=== PATIENT | female | born 1990 | race Two or more races ===

== ENCOUNTER → 2022-09-06 14:11 | Outpatient (BNVA) | payer MEDICAID, SELFPAY | PROVIDERS: PCP Student in an Organized Health Care Education/Training Program; Visit Provider Obstetrics & Gynecology | DX: Z34.01 Encounter for supervision of normal first pregnancy, first trimester (principal); Z3A.01 Less than 8 weeks gestation of pregnancy | CPT/HCPCS: 81025; 99202 ==

== ENCOUNTER 2022-09-07 12:47 | Outpatient (REF) | payer MEDICAID, SELFPAY ==
--- NOTE | ~2022-09-07 | US_ITS ---
EXAMINATION: US OBSTETRICAL ULTRASOUND CLINICAL INFORMATION: Supervision of normal . COMPARISON: None available. LMP: 07/15/2022. Gestational age by maternal dates is 7 weeks and 5 days. Estimated date of delivery by maternal dates is 04/21/2023. TECHNIQUE: Ultrasound of the maternal pelvis is performed using transabdominal transducer. M-mode Doppler is also performed. FINDINGS: There is a single intrauterine gestational sac with visible yolk sac, embryo/fetus, and cardiac activity. There is no significant subchorionic hemorrhage or hematoma. HR: 163 beats per minute. CRL (crown rump length): 1.86 cm (8 weeks and 3 days +/- 4 days). MIKY (estimated date of delivery): 04/16/2023 +/- 4 days. MATERNAL ADNEXA: The right maternal ovary measures 3.2 x 2.0 x 3.0 cm. The right ovary contains a 1.9 x 1.6 x 1.8 cm benign corpus luteum cyst, for which no imaging follow-up is recommended. The left maternal ovary measures 2.4 x 1.9 x 2.1 cm. There is no significant maternal adnexal mass. No maternal pelvic ascites. US/US OB <= 14 weeks fetus IMPRESSION: 1. Single intrauterine gestation with ultrasound gestational age of 8 weeks and 3 days +/- 4 days. 2. Estimated date of delivery is 04/16/2023 +/- 4 days. 3. No maternal adnexal mass or pelvic ascites.
== END 2022-09-07 12:48 | disposition home or self-care (01) ==
LOC: HO.US 12:47
PROVIDERS: PCP Student in an Organized Health Care Education/Training Program; Visit Provider Obstetrics & Gynecology
DX: Z34.91 Encounter for supervision of normal pregnancy, unspecified, first trimester (principal)
CPT/HCPCS: 76801

== ENCOUNTER 2022-09-14 13:19 | Outpatient (REF) | payer MEDICAID, SELFPAY ==
[2022-09-14 14:27] LABS: Hematocrit 37.3 % (37.0-47.0); Hemoglobin 12.5 g/dl (12.0-16.0); Mean Corpuscular HGB Conc 33.5 g/dl (31.0-35.0); Mean Corpuscular Volume 83.4 fL (80.0-98.0); Mean Platelet Volume 8.8 fL (9.4-12.3); Platelet Count 390 X10*3/uL (160-400); Red Blood Count 4.47 X10*6/uL (4.20-5.50); Red Cell Distribution Width 13.5 % (11.0-16.0); White Blood Count 10.4 X10*3/uL (4.8-10.8)
[2022-09-14 16:15] LABS: Amphetamine Screen Urine Not Detected (Not Detect); Barbiturates, Urine Not Detected (Not Detect); Benzodiazepines Screen Urine Not Detected (Not Detect); Cannabinoid Screen Urine Not Detected (Not Detect); Cocaine Screen Urine Not Detected (Not Detect); Fentanyl, urine Not Detected (Not Detect); Opiate Screen Urine Not Detected (Not Detect); Phencyclidine Screen Urine Not Detected (Not Detect)
[2022-09-14 16:54] LABS: Glucose 1 Hour PP 50gm Dose 120 mg/dL (60-140)
[2022-09-15 08:53] LABS: HBsAGNum1 0.31 S/CO (0.00-0.99); HIV AB/AG Nonreactive (Nonreactive); HIV Num 1 0.05 S/CO (0.00-0.99); Hepatitis B Surface Antigen Negative (Negative); ~HepC Num1 0.07 S/CO (0.00-0.79); ~Hepatitis C Antibody Nonreactive (Nonreactive)
[2022-09-15 09:10] LABS: Syphilis Screen Nonreactive (Nonreactive)
[2022-09-16 01:52] LABS: Rubella IgG Antibody 2.61 Index
[2022-09-29 13:47] LABS: CF Ethnicity WB; Cystic Fibrosis NEGATIVE (NEGATIVE)
== END 2022-09-14 13:20 | disposition home or self-care (01) ==
LOC: HO.LAB 13:19
PROVIDERS: PCP Student in an Organized Health Care Education/Training Program; Visit Provider Obstetrics & Gynecology
DX: Z34.90 Encounter for supervision of normal pregnancy, unspecified, unspecified trimester (principal)
CPT/HCPCS: 80307; 81220; 82950; 85027; 86762; 86780; 86787; 86803; 86850; 86900; 87086; 87340; 87389; 99212

== ENCOUNTER → 2022-09-25 09:59 | Outpatient (BNVA) | payer OTHER, SELFPAY | PROVIDERS: PCP Student in an Organized Health Care Education/Training Program; Visit Provider Obstetrics & Gynecology ==

== ENCOUNTER 2022-10-11 09:12 | Outpatient (AMB) | payer OTHER, SELFPAY ==
--- NOTE | 2022-10-11 09:23 | A.OFFVISPN_ITS ---
Intake Vital Signs 10/11/22 09:24 Height 4 ft 11 in Weight 136 lb BMI 27.5 BP 114/60 Intake Visit Reasons: OB PE Intake Note: EPDS 1 The patient agreed to use of a medical assisting instructor during this encounter. Scribed for ROSALIO Canela by Lakshmi Flores medical assisting instructor, on 10/11/2022 at 9:55 am EST. Lead Janitor Required: Yes Lead Janitor Language: Project Manager Retail Name: Ksenia Information Interpreted: non-clinical & clinical Ribbon Hand: Ribbon Hand Present (Ksenia) Allergies dipyrone Allergy (Intermediate, Verified 10/11/22 09:23) Rash Patient : Yes PFSH Medical History (Updated 10/11/22 @ 11:03 by Flor Blair CNM) History of PCOS Migraines Nausea and vomiting during Supervision of normal first in first trimester Supervision of normal in second trimester Family History Mother HTN (hypertension) Brother HTN (hypertension) Father COVID-19 Social History (Updated 09/25/22 @ 10:43 by Poonam Will) Household Members: Significant Other and Family Household Members Other:: Aunt,cousin Housing: Apartment Are you a primary manager managed care to a significant other at home: No Do you presently have visiting nurse or other home services: No Alcohol intake: never Patient Tobacco Use Status: Never used Tobacco Agree to transfusion: Yes Current occupational status: employed Current occupation: Food truck Current occupational exposures/hazards: No Sexual orientation: Straight/Heterosexual Gender identity: Female Female Reproductive History Menstrual Age of Menarche: 14 Total pregnancies: 2 Ab spontaneous: 1 History History 2 Elective abortions 0 Para 0 Spontaneous abortions 1 Hx # Term Pregnancies 0 Ectopic pregnancies 0 Hx # Pregnancies 0 Multiple births 0 Past Pregnancies Del. Date GA/Weeks Outcome Route Wt Inf Gender Labor Flavia Anesthesia Location Provider Complicate Unknown spontaneous Questionnaire History History : 2 Dougherty Depression Dougherty Depression Scale I have been able to laugh and see the funny side of things: As much as I always could I have looked forward with enjoyment to things: As much as I ever did I have blamed myself unnecessarily when things went wrong: Not very often I have been anxious or worried for no reason: No, not at all I have felt scared of panicky for no very good reason at all: No, not at all Things have been getting on top of me: No, I have been coping as well as ever I have been so unhappy that I have had difficulty sleeping: No, not at all I have felt sad or miserable: No, not at all I have been so unhappy that I have been crying: No, never The thought of harming myself has occurred to me: Never 1 Visit MIKY Calculator Estimated Delivery Date Method Current WG Current Estimate 04/21/23 LMP (Certain) 12w 4d Other Estimates 04/16/23 Ultrasound #1 13w 2d Expected Delivery Route/Plan Specific Issues/Plans EDC: 04/16/23 A positive Problem List: Yi speaking Migraines NT: not done when she arrived as they reported no order was available. Our staff called and was reported by [facility] staff that she was late 1/2hr. for her appt. Panorama: ordered 10/11 FAS: ordered 10/11 WIC: has appt. 10/11 CBE: Vaccination status: COVID: Tdap: Flu: Social hx: lives w/, and aunt Labor support: Ryan plan: control: Note author: Flor Blair CNM/Lakshmi Flores medical assisting instructor 12.4 wk RAHUL. Feeling well. Taking PNV. Hydrating well and good appetite Good FM, no LOF, VB or abd pain. Complaints of nausea and migraine but when she eats nausea goes away. Reports she went to [facility] Sunday for Nuchal Scan and they didn't have a order, they sent her away and it was a mistake on their end. She has WIC appointment today. Last pap smear; normal per pt. Denies vaginal itching and irritation. Offered Panorama blood test; she accepts. Discussed: VB and abd pain . Lab work; normal. Panorama blood test ordered. Office will call with results. Schedule 18-20 weeks US. Rx B6 vitamins for nausea. GC/CT panel done today. Await results and treat accordingly. No intimacy for now until healed from pap smear. Advised to eat small frequent meals and stay cool and hydrated. PEC - headaches: not resolved with 2 regular strength Tylenol doses, visual disturbances warnings and when to call for further evaluation. Reviewed when to call for any VB. Discussed to call the service here for any emergencies/deliveries to be directed to [facility]. OB Visit Log Initial Weight: 134 lb Date -?-?-?-?-?-?-?-?-?-?-?-?- EGA Weight Gest Week Fundal Ht Present FHR move Efface % Edema BP PrePreg We Weight GTT -?-?-?-?-?-?-?-?-?-?-?-?- Glucose LV Protein Blood Type 09/25/22 -?-?-?-?-?-?-?-?-?-?-?-?- 10w 2d 135 lb (+16 oz) 135 l b -?-?-?-?-?-?-?-?-?-?-?-?- 10/11/22 -?-?-?-?-?-?-?-?-?-?-?-?- 12w 4d 136 lb (+2 lb) 14 150 114/60 136 lb -?-?-?-?-?-?-?-?-?-?-?-?- Notes Visit Date: 10/11/22 Last Updated by: Flor Blair CNM Note author: Flor Blair CNM/Lakshmi Flores medical assisting instructor 12.4 wk RAHUL. Feeling well. Taking PNV. Hydrating well and good appetite Good FM, no LOF, VB or abd pain. EPDS=1. Labs reviewed. Complaints of nausea and migraine but when she eats nausea goes away. Reports she went to [facility] Sunday for Nuchal Scan and they didn't have a order, they sent her away and it was a mistake on their end. She has [facility] appointment today. Last pap smear; normal per pt. Denies vaginal itching and irritation. Offered Panorama blood test; she accepts. Discussed: VB and abd pain . Lab work; normal. Panorama blood test ordered. Office will call with results. Plans a gender reveal. Schedule 18-20 weeks US.~6wks. Rx B6 vitamins for nausea. GC/CT panel done today. Await results and treat accordingly. Bleed briskly with exam today, nothing in vaginal incl: intimacy for several days. Advised to eat small frequent meals and stay cool and hydrated. PEC - headaches: not resolved with 2 regular strength Tylenol doses, visual disturbances warnings and when to call for further evaluation. Reviewed when to call for any VB. Discussed to call the service here for any emergencies/deliveries to be directed to [facility]. RTO 4 wks. Visit Date: 09/25/22 Last Updated by: Poonam Dislacheo Braun is here today for intake visit with her spouse, Ryan. with LMP 07/15/22 which gives MIKY of 04/21/23 and GA 10w2d. US performed on 09/07/22 at 8w3d gives MIKY of 04/16/23. BMI 27.3. Pt has already had her labs completed and all appear WNL. Pt reports some nausea that seems to be resolving. Pt has h/o PCOS and early glucose was 120. We discussed dental care and pt will find a dentist for an exam. 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 We reviewed danger signs, rn utilization management um provider 02/10 and how to reach the rn utilization management um provider after hours. Pt was given the folder in Yi and first trimester education was completed. Pt will schedule OB PE and NT US will be scheduled at [facility]. Pt and partner verbalize understanding and agree with plan. No further questions. Results AMB Urinalysis, Automated UA Leukoctes 0 Loco/uL Last Edit by ELLYN Moody on 10/11/22 09:45 UA Nitrite Negative Last Edit by ELLYN Moody on 10/11/22 09:45 UA Urobilinogen 0 mg/dL Last Edit by ELLYN Moody on 10/11/22 09:4 5 UA Protein 0 mg/dL Last Edit by ELLYN Moody on 10/11/22 09:45 UA pH 6.0 Last Edit by ELLYN Moody on 10/11/22 09:45 UA Blood 1 José Luis/uL Last Edit by ELLYN Moody on 10/11/22 09:45 UA Specific Ethel 1.020 Last Edit by ELLYN Moody on 10/11/22 09:45 UA Ketone Negative Last Edit by ELLYN Moody on 10/11/22 09:45 UA Bilirubin 0 mg/dL Last Edit by ELLYN Moody on 10/11/22 09:45 UA Glucose 0 mg/dL Last Edit by ELLYN Moody on 10/11/22 09:45 Exam Const Constitutional General: cooperative, healthy appearing, no acute distress, well developed and alert Orientation/consciousness: oriented to person, oriented to place, oriented to time and patient oriented x3 HENMT Head: normal to inspection Eyes General: appearance normal, both eyes and all related structures Neck Neck: normal visual inspection Thyroid: Thyroid normal Chest Chest palpation & inspection: normal inspection of the chest Breast/axilla inspection: normal inspection of the breasts Resp Effort & Inspection: normal respiratory effort Auscultation: clear to auscultation bilaterally Cardio Rate: regular rate Rhythm: regular rhythm GI Inspection (GI): normal to inspection Palpation (GI): Soft to palpation General Exam: Yes bladder normal to palpation External Female Exam: normal external appearance and normal appearance of the urethra Urethra: normal appearance of the urethra Speculum exam - vagina: normal appearance of the vagina and normal discharge Speculum Exam - Cervix: Other cervical findings present (bled with pap) Bimanual exam- vagina & uterus: normal bimanual exam, uterine size normal (14 weeks), bladder normal to palpation and normal palpation Bimanual Exam- Adnexa, other: normal adnexae and no masses Skin General skin exam: no rashes or lesions noted Neuro General: Yes oriented to person, Yes oriented to place and Yes oriented to time Cognition (Neuro): normal cognition Extrem General: normal to inspection Psych Appearance: grossly normal Thought process: Normal thought process present Results Reviewed Results Reviewed: Laboratory Last Values Urine pH (Auto) 6.0 10/11/22 09:44 Specific Ethel (Auto) 1.020 10/11/22 09:44 Urine Protein (Auto) 0 mg/dL 10/11/22 09:44 Glucose (UA)(Auto) 0 mg/dL 10/11/22 09:44 Urine Ketones (Auto) Negative 10/11/22 09:44 Urine Blood (Auto) 1 José Luis/uL 10/11/22 09:44 Urine Nitrite (Auto) Negative 10/11/22 09:44 Urine Bilirubin (Auto) 0 mg/dL 10/11/22 09:44 Urine Urobilinogen (Auto) 0 mg/dL 10/11/22 09:44 Leukocyte Esterase (Auto) 0 Loco/uL 10/11/22 09:44 Assessment & Plan Assessment & Plan (1) Encounter for supervision of other normal , second trimester: Code(s): Z34.82 - Encounter for supervision of other normal , second trimester (2) Nausea and vomiting during prior to 22 weeks gestation: Code(s): O21.9 - Vomiting of , unspecified Category: Medical (3) Nausea and vomiting during : Code(s): O21.9 - Vomiting of , unspecified Category: Medical (4) Migraines: Code(s): G43.909 - Migraine, unspecified, not intractable, without status migrainosus Category: Medical Orders: Orders CT NG by PCR Today Z34.01 - Encounter for supervision of normal first , first trimester US OB /maternal detail 11/22/22 Z34.92 - Encounter for supervision of normal , unspecified, second trimester AMB Urinalysis Automated Today Z34.01 - Encounter for supervision of normal first , first trimester Pap Smear Today Z34.01 - Encounter for supervision of normal first , first trimester Medications: New pyridoxine (vitamin B6) 25 mg PO TID 90 tabs 0RF nausea Coding Level of Care Code [place] Diagnoses Encounter for supervision of other normal , second trimester Z34.82 Nausea and vomiting during prior to 22 weeks gestation O21.9 Nausea and vomiting during O21.9 Migraines G43.909
[2022-10-11 09:24] VITALS: BP 114/60; BMI 27.5
== END 2022-10-11 10:30 | disposition home or self-care (01) ==
LOC: HO.HWS 09:12
PROVIDERS: PCP Student in an Organized Health Care Education/Training Program; Visit Provider Advanced Practice Midwife
DX: O21.0 Mild hyperemesis gravidarum (principal); G43.909 Migraine, unspecified, not intractable, without status migrainosus; Z3A.12 12 weeks gestation of pregnancy
CPT/HCPCS: 25942; S3005

== ENCOUNTER 2022-10-11 09:12 | Outpatient (REF) | payer OTHER, SELFPAY | END 2022-10-11 09:13 | disposition home or self-care (01) | LOC: HO.LNP 09:12 | PROVIDERS: PCP Student in an Organized Health Care Education/Training Program; Visit Provider Advanced Practice Midwife | DX: O21.9 Vomiting of pregnancy, unspecified (principal); O26.891 Other specified pregnancy related conditions, first trimester; G43.909 Migraine, unspecified, not intractable, without status migrainosus; Z3A.12 12 weeks gestation of pregnancy | CPT/HCPCS: 81003; 88142; 99212 ==

== ENCOUNTER 2022-10-11 10:50 | Outpatient (REF) | payer OTHER, SELFPAY ==
[2022-10-12 15:25] LABS: CT PCR NOT DETECTED (Not Detect.); NG PCR NOT DETECTED (Not Detect.)
== END 2022-10-11 10:51 | disposition home or self-care (01) ==
LOC: HO.LAB 10:50
PROVIDERS: PCP Obstetrics & Gynecology; Visit Provider Advanced Practice Midwife
DX: Z34.01 Encounter for supervision of normal first pregnancy, first trimester (principal)
CPT/HCPCS: 0353U

== ENCOUNTER 2022-11-08 08:49 | Outpatient (AMB) | payer OTHER, SELFPAY ==
--- NOTE | 2022-11-08 08:58 | MHC.OFFVISPN ---
Intake Vital Signs 11/08/22 08:59 Height 4 ft 11 in Weight 136 lb BMI 27.5 BP 108/64 Intake Visit Reasons: RAHUL Intake Note: The patient agreed to use of a medical staff physician during this encounter. Scribed for ROSALIO Canela by Lakshmi Flores medical staff physician, on 11/08/2022 at 9:20 am EST. Paper Core Machine Operator Required: Yes Paper Core Machine Operator Language: Social Security Benefits Interviewer Name: Ksenia RAGLAND Information Interpreted: non-clinical & clinical Accompanied by: Spouse Allergies dipyrone Allergy (Intermediate, Verified 11/08/22 09:02) Rash Patient : Yes PFSH Medical History History of PCOS Migraines Nausea and vomiting during Supervision of normal first in first trimester Supervision of normal in second trimester Family History Mother HTN (hypertension) Brother HTN (hypertension) Father COVID-19 Social History Household Members: Significant Other and Family Household Members Other:: Aunt,cousin Both parents involved: Yes Caregiver staying overnight: No Housing: Apartment Are you a primary customer care consultant to a significant other at home: No Do you presently have visiting nurse or other home services: No 75 years or older and lives alone: No Alcohol intake: never Patient Tobacco Use Status: Never used Tobacco Agree to transfusion: Yes Current occupational status: employed Current occupation: Food truck Current occupational exposures/hazards: No Sexual orientation: Straight/Heterosexual Gender identity: Female Female Reproductive History Menstrual Age of Menarche: 14 History History 2 Elective abortions 0 Para 0 Spontaneous abortions 1 Hx # Term Pregnancies 0 Ectopic pregnancies 0 Hx # Pregnancies 0 Multiple births 0 Past Pregnancies Del. Date GA/Weeks Outcome Route Wt Inf Gender Labor Flavia Anesthesia Location Provider Complicate Unknown spontaneous Visit MIKY Calculator Estimated Delivery Date Method Current WG Current Estimate 04/21/23 LMP (Certain) 16w 4d Other Estimates 04/16/23 Ultrasound #1 17w 2d Expected Delivery Route/Plan Specific Issues/Plans EDC: 04/16/23 A positive Problem List: Egyptian speaking Migraines NT: not done when she arrived as they reported no order was available. Our staff called and was reported by [facility] staff that she was late 1/2hr. for her appt. Panorama: low risk, male FAS: booked 12/04/22 WIC: has appt. 10/11 Vaccination status: COVID: Covid +, and vaccinated Tdap: Flu: Social hx: lives w/, and aunt Labor support: Ryan plan: control: OB Visit Log Initial Weight: 134 lb Date <del>?</del> EGA Weight Gest Week Fundal Ht Present FHR move Efface % Edema BP PrePreg We Weight GTT <del>?</del> Glucose LV Protein Blood Type 09/25/22 <del>?</del> 10w 2d 135 lb (+16 oz) 135 lb <del>?</del> 10/11/22 <del>?</del> 12w 4d 136 lb (+2 lb) 14 150 114/60 136 lb <del>?</del> 11/08/22 <del>?</del> 16w 4d 136 lb (+2 lb) 16 150 active 108/64 136 lb <del>?</del> Notes Visit Date: 11/08/22 Last Updated by: Flor Blair CNM Note author: Flor Blair CNM/Lakshmi Flores medical staff physician 16.4 wk RAHUL. Feeling well. Taking PNV. Hydrating well and good appetite, no LOF, VB or abd pain. She is here today with Partner Veto. Reports taking PNV without iron. Has a US on December 04. Reports sensitive and bleeding gums, plans to see the dentist for follow up care. Discussed: PTL - LOF, VB, abd pain. Assured pt it is ok to have dental cleaning every 6 months. Advised to eat small frequent meals, hydrate well with water and stay cool. PEC - headaches: not resolved with 2 regular strength Tylenol doses, visual disturbances warnings and when to call for further evaluation. Reviewed when to call for any VB, LOF reviewed and when to call. Discussed to call the service here for any emergencies/deliveries to be directed to [facility]. All of her questions and concerns were addressed to the best of my ability and shared decision making. She is agreeable to plan of care. RTO 4 wks Visit Date: 10/11/22 Last Updated by: Flor Blair CNM Note author: Flor Blair CNM/Lakshmi Flores medical staff physician 12.4 wk RAHUL. Feeling well. Taking PNV. Hydrating well and good appetite Good FM, no LOF, VB or abd pain. EPDS=1. Labs reviewed. Complaints of nausea and migraine but when she eats nausea goes away. Reports she went to [facility] Sunday for Nuchal Scan and they didn't have a order, they sent her away and it was a mistake on their end. She has [place] appointment today. Last pap smear; normal per pt. Denies vaginal itching and irritation. Offered Panorama blood test; she accepts. Discussed: VB and abd pain . Lab work; normal. Panorama blood test ordered. Office will call with results. Plans a gender reveal. Schedule 18-20 weeks US.~6wks. Rx B6 vitamins for nausea. GC/CT panel done today. Await results and treat accordingly. Bleed briskly with exam today, nothing in vaginal incl: intimacy for several days. Advised to eat small frequent meals and stay cool and hydrated. PEC - headaches: not resolved with 2 regular strength Tylenol doses, visual disturbances warnings and when to call for further evaluation. Reviewed when to call for any VB. Discussed to call the service here for any emergencies/deliveries to be directed to [facility]. RTO 4 wks. Visit Date: 09/25/22 Last Updated by: Poonam Will Aparna is here today for intake visit with her spouse, Ryan. with LMP 07/15/22 which gives MIKY of 04/21/23 and GA 10w2d. US performed on 09/07/22 at 8w3d gives MIKY of 04/16/23. BMI 27.3. Pt has already had her labs completed and all appear WNL. Pt reports some nausea that seems to be resolving. Pt has h/o PCOS and early glucose was 120. We discussed dental care and pt will find a dentist for an exam. 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 We reviewed danger signs, lens and frames prescription clerk provider 02/10 and how to reach the lens and frames prescription clerk provider after hours. Pt was given the folder in Egyptian and first trimester education was completed. Pt will schedule OB PE and NT US will be scheduled at [facility]. Pt and partner verbalize understanding and agree with plan. No further questions. Assessment & Plan Assessment & Plan (1) Supervision of normal in second trimester: Code(s): Z34.92 - Encounter for supervision of normal , unspecified, second trimester Category: Medical Coding Level of Care Code [place] Diagnoses Supervision of normal in second trimester Z34.92
[2022-11-08 08:59] VITALS: BP 108/64; BMI 27.5
== END 2022-11-08 09:41 | disposition home or self-care (01) ==
LOC: HO.HWS 08:49
PROVIDERS: PCP Obstetrics & Gynecology; Visit Provider Advanced Practice Midwife
DX: Z34.92 Encounter for supervision of normal pregnancy, unspecified, second trimester (principal)
CPT/HCPCS: 25942

== ENCOUNTER → 2022-11-08 08:49 | Outpatient (BNVA) | payer MEDICAID, SELFPAY | PROVIDERS: PCP Obstetrics & Gynecology; Visit Provider Advanced Practice Midwife | DX: Z34.92 Encounter for supervision of normal pregnancy, unspecified, second trimester (principal) | CPT/HCPCS: 99212 ==

== ENCOUNTER 2022-12-07 08:58 | Outpatient (AMB) | payer MEDICAID, SELFPAY ==
[2022-12-07 09:05] VITALS: BP 120/60; BMI 28.9
--- NOTE | 2022-12-07 09:05 | MHC.OFFVISPN ---
Intake Vital Signs 12/07/22 09:05 Height 4 ft 11 in Weight 143 lb BMI 28.9 BP 120/60 Intake Visit Reasons: RAHUL Field Sales Specialist Required: Yes Field Sales Specialist Language: Performance Test Consultant Name: Ksenia RAGLAND Allergies dipyrone Allergy (Intermediate, Verified 12/07/22 09:06) Rash Is last menstrual period known: Yes Last menstrual period: 07/15/22 Post menopausal: No Patient : Yes PFSH Medical History Supervision of normal in second trimester Migraines Nausea and vomiting during Supervision of normal first in first trimester History of PCOS Family History Mother HTN (hypertension) Brother HTN (hypertension) Father COVID-19 Social History Household Members: Significant Other and Family Household Members Other:: Aunt,cousin Both parents involved: Yes Caregiver staying overnight: No Housing: Apartment Are you a primary animal care technician to a significant other at home: No Do you presently have visiting nurse or other home services: No 75 years or older and lives alone: No Alcohol intake: never Patient Tobacco Use Status: Never used Tobacco Agree to transfusion: Yes Current occupational status: employed 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 Date GA/Weeks Outcome Route Wt Inf Gender Labor Flavia Anesthesia Location Provider Complicate Unknown spontaneous Questionnaire History History : 2 Visit MIKY Calculator Estimated Delivery Date Method Current WG Current Estimate 04/21/23 LMP (Certain) 20w 5d Other Estimates 04/16/23 Ultrasound #1 21w 3d Expected Delivery Route/Plan Specific Issues/Plans EDC: 04/16/23 A positive Problem List: Kazakh speaking Migraines URA on 20 wks US- MFM c/s done, amnio declined- 32 wks US fu at [facility], In to [facility], [facility] surgical c/s NT: not done when she arrived as they reported no order was available. Our staff called and was reported by [facility] staff that she was late 1/2hr. for her appt. Panorama: low risk, male FAS: booked 12/04/22 WIC: has appt. 10/11 Vaccination status: COVID: Covid +, and vaccinated Tdap: Flu: Social hx: lives w/, and aunt Labor support: Ryan plan: control: OB Visit Log Initial Weight: 134 lb Date <del>?</del> EGA Weight Gest Week Fundal Ht Present FHR move Efface % Edema BP PrePreg We Weight GTT <del>?</del> Glucose LV Protein Blood Type 09/25/22 <del>?</del> 10w 2d 135 lb (+16 oz) 135 lb <del>?</del> 10/11/22 <del>?</del> 12w 4d 136 lb (+2 lb) 14 150 114/60 136 lb <del>?</del> 11/08/22 <del>?</del> 16w 4d 136 lb (+2 lb) 16 150 active 108/64 136 lb <del>?</del> 12/07/22 <del>?</del> 20w 5d 143 lb (+9 lb) 21 150 active 120/60 143 lb <del>?</del> Notes Visit Date: 12/07/22 Last Updated by: Farhat Boggs MD Presenting for routine OB visit with no complaints, no contractions, pressure recurrent no leakage of fluid or bleeding. Good movements. On vitamin. 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 Repeat ultrasound at 32 weeks, pediatric surgery referral then, will transfer care to [facility]. labor warnings given to the patient , she is to call in case of cramping more than 6 an hour, any leakage of fluid or bleeding. vitamin 1 tablet p.o. q.d.. Follow-up in 4 weeks. Visit Date: 11/08/22 Last Updated by: Flor Blair CNM Note author: Flor Blair CNM/Lakshmi Flores medical staff manager 16.4 wk RAHUL. Feeling well. Taking PNV. Hydrating well and good appetite, no LOF, VB or abd pain. She is here today with Partner Veto. Reports taking PNV without iron. Has a US on December 04. Reports sensitive and bleeding gums, plans to see the dentist for follow up care. Discussed: PTL - LOF, VB, abd pain. Assured pt it is ok to have dental cleaning every 6 months. Advised to eat small frequent meals, hydrate well with water and stay cool. PEC - headaches: not resolved with 2 regular strength Tylenol doses, visual disturbances warnings and when to call for further evaluation. Reviewed when to call for any VB, LOF reviewed and when to call. Discussed to call the service here for any emergencies/deliveries to be directed to [facility]. All of her questions and concerns were addressed to the best of my ability and shared decision making. She is agreeable to plan of care. RTO 4 wks Visit Date: 10/11/22 Last Updated by: Flor Blair CNM Note author: Flor Blair CNM/Lakshmi Flores medical staff manager 12.4 wk RAHUL. Feeling well. Taking PNV. Hydrating well and good appetite Good FM, no LOF, VB or abd pain. EPDS=1. Labs reviewed. Complaints of nausea and migraine but when she eats nausea goes away. Reports she went to [facility] Sunday for Nuchal Scan and they didn't have a order, they sent her away and it was a mistake on their end. She has WIC appointment today. Last pap smear; normal per pt. Denies vaginal itching and irritation. Offered Panorama blood test; she accepts. Discussed: VB and abd pain . Lab work; normal. Panorama blood test ordered. Office will call with results. Plans a gender reveal. Schedule 18-20 weeks US.~6wks. Rx B6 vitamins for nausea. GC/CT panel done today. Await results and treat accordingly. Bleed briskly with exam today, nothing in vaginal incl: intimacy for several days. Advised to eat small frequent meals and stay cool and hydrated. PEC - headaches: not resolved with 2 regular strength Tylenol doses, visual disturbances warnings and when to call for further evaluation. Reviewed when to call for any VB. Discussed to call the service here for any emergencies/deliveries to be directed to [facility]. RTO 4 wks. Visit Date: 09/25/22 Last Updated by: Poonam Dislacheo Braun is here today for intake visit with her spouse, Ryan. with LMP 07/15/22 which gives MIKY of 04/21/23 and GA 10w2d. US performed on 09/07/22 at 8w3d gives MIKY of 2//24. BMI 27.3. Pt has already had her labs completed and all appear WNL. Pt reports some nausea that seems to be resolving. Pt has h/o PCOS and early glucose was 120. We discussed dental care and pt will find a dentist for an exam. 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 We reviewed danger signs, school vocational educator provider 02/10 and how to reach the school vocational educator provider after hours. Pt was given the folder in Kazakh and first trimester education was completed. Pt will schedule OB PE and NT US will be scheduled at [facility]. Pt and partner verbalize understanding and agree with plan. No further questions. 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
== END 2022-12-07 09:28 | disposition home or self-care (01) ==
PROVIDERS: Visit Provider Obstetrics & Gynecology
DX: Q60.0 Renal agenesis, unilateral (principal); Z34.92 Encounter for supervision of normal pregnancy, unspecified, second trimester
CPT/HCPCS: 25942; 59425

== ENCOUNTER → 2022-12-07 08:58 | Outpatient (BNVA) | payer MEDICAID, SELFPAY | PROVIDERS: Visit Provider Obstetrics & Gynecology | DX: O35.EXX0 Maternal care for other (suspected) fetal abnormality and damage, fetal genitourinary anomalies, not applicable or unspecified (principal); Z3A.20 20 weeks gestation of pregnancy | CPT/HCPCS: 99212 ==